=== PATIENT | female | born 1970 | race Caucasian/White ===

== ENCOUNTER 2018-08-26 05:29 | Day surgery (SDC) ==
[2018-08-21 15:21] LABS: URINE SOURCE CLEAN CATCH
[2018-08-21 15:26] LABS: BILIRUBIN URINE NEGATIVE (NEGATIVE); BLOOD URINE NEGATIVE (NEGATIVE); COLOR YELLOW; GLUCOSE URINE NEGATIVE (NEGATIVE); HEMATOCRIT 41.3 % (37.0-47.0); HEMOGLOBIN 13.6 g/dL (12.0-16.0); KETONE URINE NEGATIVE (NEGATIVE); LEUKOCYTES URINE TRACE (NEGATIVE); MCHC 32.9 g/dL (33-37); MCV 85.2 FL (81-99); MPV 10.2 FL (7.4-10.4); NITRITE URINE NEGATIVE (NEGATIVE); PH URINE 5.5; PROTEIN URINE TRACE mg/dL (NEGATIVE); RBC 4.85 XMIL (4.2-5.4); RDW 13.7 % (11.5-14.5); SP GRAVITY URINE 1.019; TURBIDITY URINE CLEAR (CLEAR); UROBILINOGEN URINE NORMAL (NORMAL); WBC 9.47 X1000 (4.8-10.8)
[2018-08-21 15:27] LABS: UR EPITHELIAL CELLS <10 /HPF (<10); URINE BACTERIA NEGATIVE /HPF; URINE RBC <10 /HPF (<10); URINE WBC <10 /HPF (<10)
[2018-08-26] MEDS ORDERED: EXPAREL 1.3% ONE (06:14)
[2018-08-26] MEDS ORDERED: NS 250 ML ONE (06:14)
[2018-08-26] MEDS ORDERED: BACITRACIN ONE (06:14)
[2018-08-26] MEDS ORDERED: XYLOCAINE-MPF 2% ONE (06:20)
[2018-08-26] MEDS ORDERED: VERSED ONE (06:20)
[2018-08-26] MEDS ORDERED: FENTANYL ONE ×2 (06:21)
[2018-08-26] MEDS ORDERED: DIPRIVAN 1% ONE (06:21)
[2018-08-26] MEDS ORDERED: LUBRIFRESH PM OPH OINTMENT ONE (06:22)
[2018-08-26] MEDS ORDERED: NORCURON ONE (06:22)
[2018-08-26] MEDS ORDERED: QUELICIN (DOSE) ONE (06:22)
[2018-08-26] MEDS ORDERED: SODIUM CHLORIDE 0.9% 0 ML ONE (06:22)
[2018-08-26] MEDS ORDERED: REGLAN ONE (06:47)
[2018-08-26] MEDS ORDERED: TRANSDERM-SCOP ONE (06:47)
[2018-08-26] MEDS ORDERED: PEPCID ONE (06:47)
[2018-08-26] MEDS ORDERED: LOVENOX ONE (06:48)
[2018-08-26] MEDS ORDERED: LR 1,000 ML ONE (06:48)
[2018-08-26] MEDS ORDERED: VALIUM ONE (06:48)
[2018-08-26] MEDS ORDERED: KEFZOL 1 GM/D5W 2 GM/100 ML IVPB ONE (06:48)
--- NOTE | 2018-08-26 07:09 | Diag Imaging Result Doc PS360 ---
EXAM: LYMPHOSCINTIGRAPHY W/IMG HISTORY: Malig. neoplasm of upper-outer quadrant of left female breast TECHNIQUE: Imaging following lymphoscintigraphy COMPARISON: None. FINDINGS: 545 uCi lymphocytic administered. The injection site is masked near the left axilla. There is a single focal area of increased activity above and outer to the injection site in the axilla. Electronically signed by Milad Kramer 08/26/2018 7:06 AM
[2018-08-26] MEDS ORDERED: DECADRON ONE (07:25)
[2018-08-26] MEDS ORDERED: ZOFRAN ONE ×2 (07:25→12:31)
[2018-08-26] MEDS ORDERED: EPHEDRINE ONE ×2 (07:38→11:09)
[2018-08-26 08:19] LABS: URINE SOURCE CATH
[2018-08-26 08:22] LABS: BILIRUBIN URINE NEGATIVE (NEGATIVE); BLOOD URINE NEGATIVE (NEGATIVE); COLOR STRAW; GLUCOSE URINE NEGATIVE (NEGATIVE); KETONE URINE NEGATIVE (NEGATIVE); LEUKOCYTES URINE NEGATIVE (NEGATIVE); NITRITE URINE NEGATIVE (NEGATIVE); PROTEIN URINE NEGATIVE (NEGATIVE); SP GRAVITY URINE 1.005; TURBIDITY URINE CLEAR (CLEAR); UROBILINOGEN URINE NORMAL (NORMAL)
[2018-08-26 08:23] LABS: UR EPITHELIAL CELLS <10 /HPF (<10); URINE BACTERIA NEGATIVE /HPF; URINE RBC <10 /HPF (<10); URINE WBC <10 /HPF (<10)
[2018-08-26] MEDS ORDERED: KEFZOL 1 GM/D5W 1 GM/50 ML IVPB ONE (10:20)
--- NOTE | 2018-08-26 12:37 | OPERATIVE NOTE ---
PROCEDURE DATE: 08/26/2018 PREOPERATIVE DIAGNOSIS: Left upper outer breast cancer. POSTOPERATIVE DIAGNOSIS: Left upper outer breast cancer. PROCEDURES PERFORMED: 1. Right mastectomy. 2. Left sentinel lymph node mapping. 3. Left mastectomy. 4. Left sentinel lymph node biopsy. 5. Removal of bilateral breast implants. 6. Left axillary dissection. SURGEON: Iron Sifuentes MD. PSYCHOLOGIST EDUCATIONAL: Dr. Cornelius. Dr. Cornelius assisted with the mastectomies and removal of the bilateral breast implants. ANESTHESIA: General endotracheal. INTRAOPERATIVE FINDINGS: Bulky lymph nodes noted with sentinel lymph nodes being sent off #1 through 4, #1 being positive. We then performed axillary dissection. COMPLICATIONS: None at the time of this dictation. ESTIMATED BLOOD LOSS: 100 mL. SPECIMENS REMOVED: 1. Bilateral breasts, marked with a single stitch medial, double stitch superior. 2. [place] lymph nodes #1 through 4 and axillary contents. DRAINS: Per Dr. Cornelius. BRIEF HISTORY: A 48-year-old female who came in with a breast mass. She had biopsy-proven breast cancer. It was felt that she needed a mastectomy with sentinel lymph node biopsy. She wanted to proceed with a right mastectomy also. The risks, benefits, and alternatives were discussed. We coordinated with Dr. Cornelius for reconstruction. She did have a history of breast implants. DESCRIPTION OF PROCEDURE: After informed consent was obtained, the patient was brought to the operative theater, transferred to the operative table, and was placed in the supine position. General endotracheal anesthesia was then performed without complication. A formal time-out was then performed, confirming patient, date, and procedure. All were in agreement. At that time, attention was given the right breast first. Through the skin markings made by Dr. Cornelius, we performed a mastectomy, carried down through the elliptical incision of the breast. We went superiorly to the 2nd rib, medially to the sternum, laterally to the axillary contents, and to the inferior margin was the inframammary fold. We did encounter the breast implant and removed it, and dissected some parts of the capsule of the area. We dissected the area off the pectoralis major. The pectoralis was very thinned out but we were able to remove it. We maintained hemostasis with electrocautery. We had flaps that were preserved both inferiorly and superiorly. We then turned our attention to the left side. In a similar way, we made incisions through the previously skin marked area, carried all the way down to the same borders as the other side. In a similar fashion, the left side pectoralis major was very thin but we were able to get it out, get at the breast off the pectoralis major. We also noted that she had an implant which we removed and dissected parts of the capsule. We went superiorly again to the 2nd rib, medially to the sternum, inferiorly to the inframammary fold, laterally to the axillary contents. We removed this in its entirety, labeled it, as we did the right side, and passed it off to pathology. We then turned our attention to the axilla, left side. We dissected it out using a combination of electrocautery and blunt dissection. Four sentinel lymph nodes, the first one came back preliminarily as being positive. We then completed an axillary node dissection, removing all the way to the axillary vein as best we could while preserving the neurovascular bundles in the area. We then turned the procedure over to Dr. Cornelius. Please see his dictation. cc: MD Mike Flores MD
[2018-08-26] MEDS ORDERED: DEMEROL PCA VIAL IV PRN (14:00)
[2018-08-26] MEDS ORDERED: NARCAN 0.4 MG in LR 1,000 ML IV PRN (14:00)
[2018-08-26] MEDS ORDERED: LR 1,000 ML IV SCH (14:00)
[2018-08-26] MEDS ORDERED: ZOFRAN IV PRN (14:00)
[2018-08-26] MEDS ORDERED: NARCAN IV PRN (14:00)
[2018-08-26] MEDS: LR 1,000 ML IV SCH ×2 (14:55→20:41)
[2018-08-26] MEDS ORDERED: PERICOLACE PO PRN (15:32)
--- NOTE | 2018-08-26 17:50 | OPERATIVE NOTE ---
PROCEDURE DATE: 08/26/2018 PROCEDURE: Bilateral breast reconstruction with bilateral aeriform air expanders and the use of bilateral AlloDerm tissue matrix. INDICATION FOR PROCEDURE: This patient is a 48-year-old, white female, with a new breast cancer on the left side that is being taken care of by Dr. Sifuentes. She has a previous history of a bilateral breast augmentation with saline implants. She desires bilateral mastectomies to treat her cancer since she is young. She was seen in the office for informed consent for this procedure on 08/21/2018. At that point, she understood that she would have a bilateral reconstruction with tissue expanders and the use of Allergan AlloDerm tissue matrix to cover the bottom portion of the manager multicultural since her muscles will be ruined by the augmentation. She understands this is the first stage of a planned 2-stage procedure. She understands and wants to put permanent implants in the future. She knows there will be a period of time where she will not have optimal breast shape when she is going through the expansion process, and we will take care of that at the second stage when we switch her to saline implants. She understands exact breast cup size changes and exact shapes are not guaranteed. She understands risks include infection, blood loss, blood clots in legs, heart problems, lung problems, allergic reactions, or blood and serum collections in the operative sites that might require drainage. She knows that we are putting air manager multicultural tissue expanders in her and they have metal in them, so she cannot have an MRI scan while she has them in place. She understands the exact size and shape cannot be guaranteed. She knows her skin incision will be standard horizontal 2 oblique skin incisions to remove her nipples and the biopsy site on the left side. She knows where her scars will be. DESCRIPTION OF PROCEDURE: The patient was brought to the operating room after she was marked in outpatient surgery in the sitting position for the bilateral mastectomies. She went to the operating room, had general anesthesia and was prepped and draped. She was re-marked, and then the folds were tacked with silk sutures to keep them stitched in position. Then I proceeded to help Dr. Sifuentes do the mastectomies because I wanted to see the quality of the muscle and where the implant was laying and the quality of the lower breast tissue muscles. We did the right total mastectomy first, and then we did the left total mastectomy. When that was completed, I left the room and allowed him to do a sentinel lymph node biopsy. The lymph nodes were positive so she had more lymph nodes dissected. When he was done I came back to the operating room, measured the pockets, dissected the pockets to free them up a bit to get ready for air form expanders that were of the model #600 which have a 14 cm base diameter. Both pockets were infiltrated with Exparel for postoperative pain control. Both pockets were irrigated with Betadine solution. Both pockets were handled in the same way. The inferior inframammary fold, capsule was dissected down to the level of the inframammary fold and then a piece of AlloDerm was used to sew into the inframammary fold in this bottom piece of capsule. Once the inferior incision was finished with the AlloDerm, the implants were opened and placed into the pocket, held down low in the pocket with silk sutures at the suture tabs at 6 o'clock and in the lateral suture tab and then the remainder of the AlloDerm was sewn over the manager multicultural to the inferior border of the pectoralis major muscle and the continuation of the old capsule laterally for a watertight seal. One drain was placed in the manager multicultural pocket and then on the right side, 2 drains were placed under the skin flaps and she was tacked closed with silk sutures. On the left side, an additional 7 mm flat [place]-Valentin drain was placed and the lymph node dissection pocket was closed down with a running 3-0 Polysorb suture. The AlloDerm and the drains were sewn in the same way on the left side in addition to fixing the manager multicultural the same way with the inferior and lateral suture tab. The skin was closed over 2 drains and then both expanders were checked with the remote control to make sure they communicated and 10 mL of gas was released in each manager multicultural. She then had the drains stitched with silk drain stitches and the incisions were closed with 3-0 Polysorb interrupted sutures in the fat, a running 3-0 Polysorb deep dermal suture, followed by a running 4-0 Biosyn subcuticular stitch. She tolerated the procedure well and was transported to the recovery room in good condition. cc: Mike Cornelius MD
[2018-08-26] MEDS: KEFZOL 1 GM/D5W 1 GM/50 ML IVPB IV SCH (20:41)
[2018-08-27] MEDS: LR 1,000 ML IV SCH (03:32)
[2018-08-27] MEDS: KEFZOL 1 GM/D5W 1 GM/50 ML IVPB IV SCH (03:32)
[2018-08-27] MEDS ORDERED: LR 1,000 ML IV SCH (07:30)
[2018-08-27] MEDS: NORCO-10 PO PRN ×3 (08:27→16:54)
[2018-08-27] MEDS ORDERED: PERIDEX MT SCH (09:00)
[2018-08-27] MEDS ORDERED: PAXIL PO SCH ×2 (09:00)
--- NOTE | 2018-08-27 11:01 | GENERAL SURGERY PROGRESS NOTE ---
DATE: 08/27/2018 SUBJECTIVE: Patient seems to be doing okay. OBJECTIVE: Vital Signs: The patient is currently afebrile. Her vital signs are stable. General Examination: No acute distress. Cardiovascular: Regular rate and rhythm. Lungs: Grossly clear. Chest Wall: Multiple drains noted with all serosanguineous output. No swelling noted to the axillae or upper extremities. ASSESSMENT/PLAN: A 48-year-old female status post left modified radical mastectomy and right simple mastectomy for breast cancer. Postoperative state. At this time, the patient seems to be doing well. The patient was seen by Dr. Cornelius. We will defer discharge to Dr. Cornelius but otherwise continue current treatment. Keep drains in place per Dr. Cornelius. We will likely need to place a port but we will discuss this with the patient further at the outpatient setting. cc: MD Mike Flores MD
[2018-08-27] MEDS ORDERED: LOVENOX SUBQ ONE (14:08)
[2018-08-27 15:41] VITALS: BP 111/63
--- NOTE | 2018-08-28 09:20 | DISCHARGE SUMMARY ---
ADMISSION DATE: 08/26/2018 DISCHARGE DATE: 08/27/2018 ADMISSION DIAGNOSIS: Left breast cancer. DISCHARGE DIAGNOSIS: Left breast cancer. HOSPITAL COURSE: The patient was admitted to the hospital via outpatient surgery where preoperative barry were made for bilateral total mastectomies to be done by Dr. Sifuentes, and then bilateral immediate reconstructions to be done by Dr. Cornelius. She went to the operating room, and had mastectomies, sentinel lymph node biopsy, and then lymph node dissection on the left side. She then had submuscular air expanders placed. They were the 600 mL size expanders, and there were placed post pectoral, and under AlloDerm inferiorly because her mastectomy required removing previously implanted saline implants. Drains were placed on both sides. She tolerated the procedure well. She was transported to the recovery room in good condition. She will be seen in my office for a dressing change in 48 hours. cc: MD Iron Varma MD
== END 2018-08-27 17:00 | disposition home or self-care (01) ==
LOC: PAT 05:29 → OPS 05:29 → 4N 05:29 → OPS 08-27 17:00
PROVIDERS: ATTEND Surgery Plastic and Reconstructive Surgery
PROC: GE.BXSN (2018-08-26 07:19)
CPT/HCPCS: 78195; 81001; 85027; 88300; 88305; 88307; 88309; 88331; 94761; 94799; A9270; A9520; C1789; C9290; J0330; J0690; J1100; J1650; J2175; J2250; J2405; J3010; J7050; J7120

== ENCOUNTER 2018-12-03 22:09 | Inpatient (IN) ==
[2018-12-03] MEDS ORDERED: TORADOL IV ONE (23:04)
[2018-12-03] MEDS ORDERED: NS 1,000 ML IV ONE (23:04)
[2018-12-04] MEDS ORDERED: ZOFRAN IV ONE (00:04)
[2018-12-04 00:10] LABS: BASO# 0.04 X1000 (0.0-0.2); BASO% 1.9 % (0.0-0.8); EOS# 0.06 X1000 (0.0-0.7); EOS% 2.9 % (0.0-10.0); HEMATOCRIT 31.6 % (37.0-47.0); HEMOGLOBIN 10.7 g/dL (12.0-16.0); IMM GRAN# 0.04 X1000 (0.0-0.04); IMM GRAN% 1.9 % (0.0-0.5); LYMPH# 0.43 X1000 (1.2-3.4); LYMPH% 20.5 % (20.5-51.1); MCH 28.8 PG (27-31); MCHC 33.9 g/dL (33-37); MCV 85.2 FL (81-99); MONO# 0.28 X1000 (0.11-0.59); MONO% 13.3 % (1.7-9.3); MPV 10.3 FL (7.4-10.4); NEUT# 1.25 X1000 (1.4-6.5); NEUT% 59.5 % (42.2-75.2); PLT 151 X1000 (130-400); RBC 3.71 XMIL (4.2-5.4); RDW 22.5 % (11.5-14.5)
[2018-12-04 00:28] LABS: AGAP 13; ALBUMIN 4.2 g/dL (3.5-5.0); BUN 6 mg/dL (8-22); CALCIUM 9.7 mg/dL (8.8-10.2); CHLORIDE 98 mmol/L (98-107); COSMO 266; CREATININE 0.6 mg/dL (0.5-0.9); ESTIMATED GFR > 60; GLUCOSE 96 mg/dL (70-104); POTASSIUM 4.1 mmol/L (3.5-5.1); SODIUM 134 mmol/L (136-145); TCO2 23 mmol/L (25-35); TOTAL BILIRUBIN 0.45 mg/dL (0.20-1.00); TOTAL PROTEIN 7.3 g/dL (6.3-8.3)
[2018-12-04 00:29] LABS: ALB/GLOB RATIO 1.4; ALKALINE PHOSPHATASE 135 U/L (32-104); GOT 15 U/L (10-30); GPT 20 U/L (10-36)
[2018-12-04 00:43] LABS: URINE SOURCE CLEAN CATCH
[2018-12-04] MEDS ORDERED: VANCOMYCIN 1 GM/NS 1 GM/250 ML IVPB IV ONE (00:50)
[2018-12-04] MEDS ORDERED: ZOSYN 3.375 GM in NS 50 ML IV ONE (00:50)
[2018-12-04 00:53] LABS: BILIRUBIN URINE NEGATIVE (NEGATIVE); BLOOD URINE NEGATIVE (NEGATIVE); COLOR YELLOW; GLUCOSE URINE NEGATIVE (NEGATIVE); KETONE URINE NEGATIVE (NEGATIVE); LEUKOCYTES URINE NEGATIVE (NEGATIVE); NITRITE URINE NEGATIVE (NEGATIVE); PH URINE 6.5; PROTEIN URINE NEGATIVE (NEGATIVE); SP GRAVITY URINE 1.009; TURBIDITY URINE CLEAR (CLEAR); UR EPITHELIAL CELLS <10 /HPF (<10); URINE BACTERIA NEGATIVE /HPF; URINE RBC <10 /HPF (<10); URINE WBC <10 /HPF (<10); UROBILINOGEN URINE NORMAL (NORMAL)
[2018-12-04] MEDS ORDERED: DUONEB (A & A) INH ONE (02:06)
[2018-12-04] MEDS ORDERED: TYLENOL PO PRN (03:00)
[2018-12-04] MEDS ORDERED: OXY IR PO PRN (03:00)
[2018-12-04] MEDS: MAXIPIME 2 GM in NS 100 ML IV SCH ×2 (03:21→14:10)
[2018-12-04] MEDS: NS 1,000 ML IV SCH ×2 (03:21→12:23)
[2018-12-04] MEDS: LOVENOX SUBQ SCH (03:24)
--- NOTE | 2018-12-04 03:26 | HISTORY AND PHYSICAL ---
REASON FOR ADMISSION: Fever, chills, cough, shortness of breath for the last 24 hours. HISTORY OF PRESENT ILLNESS: Ms Ros Rachel is a pleasant 40-year-old, woman who is currently undergoing chemotherapy for triple negative breast cancer every 3 weeks. Last treatment was about a week ago. Comes in today complaining of shortness of breath, cough productive of initially whitish-greenish sputum 2 days ago, but now brownish sputum, and a fever of 102 degrees at home. Denies any close contacts. Other than these aforementioned findings, she denies any cardiac complaints or anginal equivalent. No lower extremity redness, pain. No new onset rash. REVIEW OF SYSTEMS: Notable for some mild odynophagia, nausea and vomiting, but she states that these are lingering effects of the chemotherapy she was exposed to. Otherwise, a 12 system review was done, positive findings per HPI. ALLERGIES: Levaquin, which causes a rash. HOME MEDICATIONS: Have not been reconciled. SURGICAL HISTORY: The patient has had cholecystectomy, carpal tunnel surgery, right knee cyst removal, left lower extremity thrombectomy, bilateral mastectomy with bilateral breast implant implantation, hysterectomy, and . FAMILY HISTORY: Notable for diabetes, heart disease, stroke. No cancer. SOCIAL HISTORY: , lives with her . Drinks maybe 2 to 3 times a year. No alcohol or illicit drug use. LABORATORY WORK: White count 2,000, hemoglobin and hematocrit 10 and 31, platelets 161,000 with normal differential. Sodium 134, BUN and creatinine are normal. Alkaline phosphatase 135. Urinalysis is clean. Chest film does not show any infiltrates, does show bilateral breast implants. PHYSICAL EXAMINATION: GENERAL: Pleasant, middle-aged woman. She is alert and oriented to person, time with normal mood and affect. VITAL SIGNS: Blood pressure is 104/70, heart rate 116, respiratory rate 20, temperature 99.2 degrees, and 98% on room air. HEENT: Head is normocephalic, atraumatic. Eyes: JONN, EOMI. She is anicteric and not pale. Otherwise, patient also has chemotherapy-induced alopecia. Oropharyngeal exam only shows mild posterior pharynx erythema with no exudation. No ulcers. No sign of cyanosis. NECK: Supple. No JVD or carotid bruit. No thyromegaly. CHEST: A few scattered wheezes in her lungs in the upper part of her lungs, both sides. She has a med port in the right pectoral area, it is nontender. No erythema noted. CARDIOVASCULAR: First and 2nd heart sounds heard. No gallops, murmurs, rubs. Rhythm is regular. GASTROINTESTINAL: Abdomen is protuberant, soft. No tenderness. No mass, megaly. Bowel sounds. Rectal exam deferred at this time. EXTREMITIES: Good distal pulses, volumes regular, symmetrical. No edema, clubbing, or cyanosis. NEUROLOGIC: No gross focal deficits. SKIN: Intact. No breakdown, lesions, or erythema. MUSCULOSKELETAL: Grossly normal. ASSESSMENT: 1. Fever with mild neutropenia in a breast cancer patient undergoing chemotherapy. 2. Probable pneumonia. 3. Pancytopenia secondary to chemotherapy. 4. Hyponatremia. PLAN: Start patient on broad-spectrum antibiotics to cover for Staphylococcus epidermidis, Staphylococcus aureus, and gram-negative rods, especially Pseudomonas. I would start patient on breathing treatments as needed. Consult Dr. Rondon to see patient. Treat patient symptomatically, otherwise, during her stay. Monitor closely for gram-negative sepsis since the trend is more in that direction, but more so because these pathogens have developed a host of resistance. cc: MD Alex Ronquillo MD
--- NOTE | 2018-12-04 07:16 | Diag Imaging Result Doc PS360 ---
EXAM: CHEST-2 VIEWS 12/03/2018 HISTORY: chest pain TECHNIQUE: PA and lateral chest COMMENT: There are bilateral breast tissue expanders. There is a Port-A-Cath on the right with its tip just above the right atrium. The lungs are better expanded than on 09/27/2018. Otherwise are has been no significant change. IMPRESSION: No evidence of acute disease. Electronically signed by Celso Thomas 12/04/2018 7:14 AM
[2018-12-04] MEDS ORDERED: PHENERGAN PR PRN (07:59)
[2018-12-04] MEDS: PAXIL PO SCH (08:46)
[2018-12-04] MEDS: PHENERGAN PO PRN (08:46)
--- NOTE | 2018-12-04 10:09 | Diag Imaging Result Doc PS360 ---
EXAM: CT THORAX W/O CONTRAST INDICATION: probable PNA TECHNIQUE: This exam was performed using automated exposure control, adjustment of mA or kV according to patient size, and/or use of iterative reconstruction technique. COMPARISON: None. FINDINGS: The lungs are clear. There is no airspace consolidation appreciated. There is no pleural fluid collection and no pneumothorax. There are calcified mediastinal and left hilar lymph nodes indicating prior granulomatous disease. There is no evidence of significant mediastinal or hilar lymphadenopathy, otherwise. There has been a fairly recent bilateral mastectomy. Tissue expanders are in place. There is a small cyst density lesion at the dome of the liver. There are a few other smaller low dense hepatic foci that also likely represent tiny cysts. The upper abdomen is essentially unremarkable, otherwise. There is no evidence of acute osseous abnormality. IMPRESSION: Incidental/nonacute findings detailed above. No evidence of pneumonia or other definite acute chest pathology. Electronically signed by Dhiraj Mir 12/04/2018 10:07 AM
--- NOTE | 2018-12-04 13:04 | HEMO/ONC CONSULTATION ---
DATE: 12/04/2018 REASON FOR CONSULTATION: This is a known patient of ours for the treatment of triple negative breast cancer. HISTORY OF PRESENT ILLNESS: Ms. Rachel is on her third cycle of Adriamycin and Cytoxan for triple negative breast cancer. Her last treatment was on November 26. She called the office yesterday complaining of 1 day of increased productive cough with white, green and brown thick sputum. She came in to the office to check her labs. At that time she had no fever. The patient states after she got home that evening, she began to feel progressively worse and began running a fever of 102 degrees, She felt body aches, pain with inspiration and had wheezing. She went to the ER and was subsequently admitted. The patient states she currently feels better after treating her fever. She said last night she had significant body aches and wheezing. She has not had wheezing this morning. She had a breathing treatment prior to my arrival. She says it does hurt for her to take a deep breath in. She denies any sinus congestion. She denies abdominal pain. PAST MEDICAL HISTORY: Noncontributory. PAST SURGICAL HISTORY: Cholecystectomy, breast augmentation, carpal tunnel, phlebectomy, knee scope, hysterectomy, x2. ALLERGIES: Levaquin due to rash. HOME MEDICATIONS: Paxil, Verdig[place] 5, Zofran, Phenergan and Reglan. SOCIAL HISTORY: She is a nonsmoker, nondrinker. FAMILY HISTORY: Her maternal aunt had breast cancer. Her father had a stroke. REVIEW OF SYSTEMS: Negative, except what is mentioned in the HPI. VITAL SIGNS: Temperature 98.3 degrees, pulse rate 93, respiratory rate 18, blood pressure 115/67, O2 saturation 100% on room air. She is in 0/10 pain. PHYSICAL EXAMINATION: General: Young appearing female in no acute distress. HEENT: Sclerae is anicteric. PERRLA. Oral mucosa pink and moist. Conjunctivae pink. Skin: Warm, dry, and intact without rashes or lesions. Cardiovascular: Normal S1, S2. Heart rate and rhythm regular. Respiratory: No signs of respiratory distress. Lungs are generally clear with occasional wheeze. Gastrointestinal: Abdomen is protuberant, soft, nontender. Bowel sounds are present. Musculoskeletal: Upper and lower extremities are atraumatic in appearance without edema or deformities. Neurological: Awake, alert and oriented x3. No focal motor deficits noted. Lymph survey: No head, neck, or axillary lymphadenopathy noted. LABORATORY: WBCs 2.10, hemoglobin 10.7, hematocrit 31.6, platelet count 151. ANC 1.25. Sodium 134, potassium 4.1, creatinine 0.6, alkaline phosphatase 135. RADIOLOGY: Chest x-ray shows no evidence of acute disease. Chest CT shows no evidence of pneumonia or definite acute chest pathology. ASSESSMENT: 1. Fever. 2. Leukopenia. 3. Triple negative breast cancer undergoing chemotherapy. PLAN: Continue treatment per medical management with broad-spectrum antibiotics. The patient also received Neulasta on day 2 on chemotherapy. Her last dose was on November 27. Her last dose of Cytoxan and Adriamycin was on November 26. We will continue to follow and monitor the patient. Dictated by MONICA Walker for Alex Rondon MD Patient seen and examined. Patient admitted with fever, cough, sputum production and mild leukopenia with neutropenia. She is status post chemotherapy and Neulasta about a week ago. No severe neutropenia at the current time. Culture results are pending. Chest x-ray and CT scan without evidence of pneumonia. Continue broad-spectrum antibiotics. We will follow along with you. Alex Rondon M.D. cc: Alex Rondon MD [facility]
[2018-12-04] MEDS: NORCO-5 PO PRN ×2 (14:10→22:11)
[2018-12-04] MEDS ORDERED: VANCOMYCIN IV PER PHARMACY MISC SCH (16:00)
[2018-12-04] MEDS: VANCOMYCIN 1,000 MG in NS 250 ML IV SCH (17:47)
--- NOTE | 2018-12-04 18:49 | PROGRESS NOTE ---
DATE: 12/04/2018 SUBJECTIVE/OBJECTIVE: The patient was admitted with neutropenia, fever at home, progressive productive cough. There was suspicion was for pneumonia in the setting of cancer and active chemo. A chest x-ray did not really show anything. CT chest was obtained to see if there was occult pneumonia, but no acute findings were found. ASSESSMENT/PLAN: May be bronchitis, but there is some concern for port infection. On exam, port looks okay. We will ask for an Infectious Disease opinion. Continue to monitor closely.
--- NOTE | 2018-12-04 21:06 | INFECTIOUS DISEASE CONSULT REP ---
DATE: 12/04/2018 CONCLUSION: I think the patient may have bronchitis. Also, I think it is possible that she could have a malfunctioning Port-A-Cath that is infected. RECOMMENDATIONS: I agree with treating the patient with cefepime. I have also added vancomycin. DISCUSSION: Approximately 5 to 7 days ago, the patient started having chest congestion and a cough production of sputum. The patient also states that she felt tight in her chest. She was short of breath and wheezed. The patient's CBC shows a white count of 2100, hemoglobin 10.7, and platelet count 151,000. Creatinine is 0.6, GFR is greater than 60. Liver function studies are normal, except for an alkaline phosphatase of 135. Urinalysis shows no white cells or bacteria. CT scan of the chest shows no infiltrate. The patient has had blood cultures drawn and thus far they are negative. PAST MEDICAL HISTORY/REVIEW OF SYSTEMS: Eyes/ears: She does wear glasses. Her hearing is good. Neck: No stiffness. Respiratory: See present illness. Cardiac: No chest pain or palpitations. Gastrointestinal: No vomiting or diarrhea. The patient has had some nausea in the past week, also. Genitourinary: No dysuria or flank pain. Bones/joints/muscles: No swollen joints or bone pain, but she does say she has some mild myalgias. Neurologic: No seizures. No loss of motor or sensory function. OBSTETRICAL/GYNECOLOGICAL HISTORY: The patient is a 2, para 2, AB 0. She delivered both of her children by section. She has had a hysterectomy and bilateral salpingo- oophorectomy. PREVIOUS HOSPITALIZATIONS/OPERATIONS: Patient has had 2 sections, a hysterectomy, and bilateral salpingo-oophorectomy. She has had a cholecystectomy, a surgery on her right knee, right carpal tunnel surgery, bilateral mastectomy, and surgery on her left leg for varicose veins. MEDICAL DISEASES: Positive for breast cancer with zana metastases. The patient has done chemotherapy. INFECTIOUS DISEASE HISTORY: Positive for UTI. FAMILY HISTORY: Positive for stroke, cancer, myocardial infarction, and diabetes. SOCIAL HISTORY[place] . She is a nurse, works at outpatient surgery. She has a dog and a cat for pets. ALLERGIES: She is allergic to Levaquin. MEDICATIONS: At home, she takes Paxil. PHYSICAL EXAMINATION: Vital Signs: Temperature is 98.1 degrees, pulse 92, respirations 16, blood pressure 96/53. The patient is 5 feet tall, weighs 147 pounds. General: This is a somewhat obese, middle-aged female. She is in no acute distress. Head/eyes/ears/nose/throat: She can hear my spoken words and see near objects. I did not see any white coating on her tongue. Her sinuses are not tender. Thorax: The patient's right-sided Port-A-Cath is slightly tender and swollen. Lungs: Clear to auscultation. Cardiovascular: Regular heart rate. Abdomen: Soft and nontender. Neurologic: The patient is alert. She can move her extremities. There is no tremor. integument: No rash noted. Thank you for the consult. cc: Kenny Neal MD
[2018-12-05] MEDS: LOVENOX SUBQ SCH (03:02)
[2018-12-05] MEDS: MAXIPIME 2 GM in NS 100 ML IV SCH ×2 (03:02→15:38)
[2018-12-05] MEDS: VANCOMYCIN 1,000 MG in NS 250 ML IV SCH ×2 (04:26→20:03)
[2018-12-05 07:55] LABS: BASO# 0.06 X1000 (0.0-0.2); BASO% 2.4 % (0.0-0.8); EOS# 0.08 X1000 (0.0-0.7); EOS% 3.2 % (0.0-10.0); HEMOGLOBIN 9.8 g/dL (12.0-16.0); IMM GRAN# 0.05 X1000 (0.0-0.04); LYMPH# 0.61 X1000 (1.2-3.4); LYMPH% 24.1 % (20.5-51.1); MCH 28.6 PG (27-31); MCHC 32.7 g/dL (33-37); MCV 87.5 FL (81-99); MONO# 0.49 X1000 (0.11-0.59); MONO% 19.4 % (1.7-9.3); MPV 10.2 FL (7.4-10.4); NEUT# 1.24 X1000 (1.4-6.5); NEUT% 48.9 % (42.2-75.2); PLT 141 X1000 (130-400); RBC 3.43 XMIL (4.2-5.4); RDW 22.6 % (11.5-14.5); WBC 2.53 X1000 (4.8-10.8)
[2018-12-05 08:01] LABS: AGAP 13; ALB/GLOB RATIO 1.4; ALBUMIN 3.8 g/dL (3.5-5.0); ALKALINE PHOSPHATASE 120 U/L (32-104); BUN 4 mg/dL (8-22); CALCIUM 9.2 mg/dL (8.8-10.2); CHLORIDE 111 mmol/L (98-107); COSMO 289; CREATININE 0.6 mg/dL (0.5-0.9); ESTIMATED GFR > 60; GLUCOSE 92 mg/dL (70-104); GOT 15 U/L (10-30); GPT 21 U/L (10-36); POTASSIUM 4.1 mmol/L (3.5-5.1); SODIUM 147 mmol/L (136-145); TCO2 23 mmol/L (25-35); TOTAL BILIRUBIN 0.25 mg/dL (0.20-1.00); TOTAL PROTEIN 6.5 g/dL (6.3-8.3)
[2018-12-05] MEDS: PAXIL PO SCH (09:05)
--- NOTE | 2018-12-05 09:10 | HEMO/ONC PROGRESS NOTE ---
DATE: 12/05/2018 HISTORY OF PRESENT ILLNESS/SUBJECTIVE: The patient is resting comfortably in bed this morning. She awakes easily when I enter the room. The patient states she is comfortable. She feels a lot better than she did yesterday. Her cough production is much less. She has no pain. No body aches. She feels as though her breathing is much easier. OBJECTIVE: Vital Signs: Temperature 97.7 degrees, pulse rate 76, blood pressure 94/63, O2 saturation 97% on room air. She is in 0/10 pain. Physical Examination: General: A young-appearing female in no acute distress. HEENT: Sclerae are anicteric. PERRLA. Oral mucosa pink and moist. Conjunctivae pink. Skin: Warm, dry, and intact without ecchymosis or petechiae. Cardiovascular: Normal S1, S2. Heart rate and rhythm regular. Respiratory: No signs of respiratory distress. Lung sounds are clear to auscultation bilaterally. Gastrointestinal: Abdomen is soft, nontender, nondistended. Musculoskeletal: Upper and lower extremities are atraumatic in appearance without edema. Neurological: Awake, alert, and oriented x3. No focal motor deficits noted. Laboratory: WBCs 2.53, hemoglobin 9.8, hematocrit 30, platelet count a 141,000. ANC 1.24. Sodium 147, potassium 4.1. Alkaline phosphatase 120. ASSESSMENT: 1. Fever and Bronchitis. 2. Mild leukopenia with neutropenia. 3. Triple negative breast cancer, currently undergoing chemotherapy. PLAN: Continue the patient on broad-spectrum antibiotics. Her blood cultures are still pending. The patient appears to be improving. We will continue to follow along. Dictated by MONICA Walker for Alex Rondon MD [facility]
[2018-12-05] MEDS: NORCO-5 PO PRN (13:07)
--- NOTE | 2018-12-05 16:47 | PROGRESS NOTE ---
DATE: 12/05/2018 INTERVAL HISTORY: Patient with continued nonproductive cough, but slightly improved. Malaise with fatigue and dyspnea. All much improved. Afebrile overnight. No new complaints. No acute events. REVIEW OF SYSTEMS: Twelve point review of systems negative except as per interval history. LABS: WBC 2.5, hemoglobin 9.8, hematocrit 30.0, platelets 141,000. Sodium 147, potassium 4.1, BUN 4, creatinine 0.6. Urinalysis unremarkable. Blood cultures remain negative. VITALS: T-max 98.8 degrees, pulse 92, blood pressure 107/65, respirations 16, O2 saturation 98% on room air. PHYSICAL EXAMINATION: General: No acute distress. Vitals: As above. HEENT: Normocephalic, atraumatic. Moist mucous membranes. No cervical adenopathy. Cardiovascular: Regular rate and rhythm. No murmurs, rubs, or gallops. Abdomen: Soft, nontender, nondistended. Bowel sounds positive. Extremities: Peripheral pulses intact. No clubbing, cyanosis, or edema. Neurologic: Cranial nerves grossly intact. No focal deficits. Psychiatric: Normal mood and affect. Awake, alert, oriented x3. Skin: No new rashes or lesions identified. ASSESSMENT AND PLAN: 1. Febrile illness, mild neutropenia. The patient presented with cough, some mild dyspnea, malaise, fatigue. Initial concern was for pneumonia but imaging does not support this. May be viral upper respiratory infection but given active chemotherapy neutropenia we are treating for possible port infection until proven otherwise. Patient on antibiotics with vancomycin and cefepime for now. Infectious disease following. If blood cultures remain negative making port infection unlikely, then may be able to deescalate antibiotics and discharge in the next 24 to 48 hours. 2. Breast cancer. Patient on chemotherapy. Remains mildly neutropenic but not really worsening. Continue to monitor. 3. Sodium. Patient initially with low sodium now actually slightly high today after some fluids. No need for acute intervention but will follow labs. 4. Anemia likely chemo related. Blood counts with slight down trend but no signs or symptoms of active bleeding.
--- NOTE | 2018-12-05 19:53 | INFECTIOUS DISEASE PROGRESS NO ---
DATE: 12/05/2018 HISTORY OF PRESENT ILLNESS: The patient has bronchitis and possible infection of her Port-A-Cath. MEDICATIONS: The patient is on day 1 of treatment with cefepime and vancomycin. PHYSICAL EXAMINATION: Vital Signs: Temperature is 97.3 degrees, pulse 92, respirations 14, blood pressure is 107/65. General: This is a healthy-appearing, middle-aged female. She is in no acute distress. Head, eyes, ears, nose, and throat: The patient has lost all of her hair. She can hear my spoken words and see near objects. She does not have any white patches in her mouth. Neck: No pain with movement.. Thorax: Patient's Port-A-Cath site is slightly tender. It is not draining anything. It is slightly swollen in the area also. Lungs: Clear to auscultation. Cardiovascular: Heart rate is regular. Abdomen: Soft and nontender. Neurologic: The patient is alert. She can move her extremities. She ambulates without difficulty. There is no tremor. LAB AND X-RAY: There are no new radiographic studies done today. The patient's CBC shows a white count of 2530 with an absolute neutrophil count of 1240. Hemoglobin is 9.8, and platelet count is 141,000. Creatinine is 0.6. GFR is greater than 60. Alkaline phosphatase is 120. Blood cultures are pending. ASSESSMENT AND PLAN: The patient has bronchitis and may have an infected Port-A-Cath. My plan is to continue with her current antibiotics and see what the reading on the blood cultures is tomorrow. For now, I am going to continue cefepime and vancomycin. COMORBIDITIES: The patient has breast cancer with zana metastases. She has had chemotherapy. cc: Kenny Neal MD
[2018-12-05] MEDS: PHENERGAN PO PRN (22:39)
[2018-12-06] MEDS: MAXIPIME 2 GM in NS 100 ML IV SCH (04:24)
[2018-12-06] MEDS: LOVENOX SUBQ SCH ×2 (04:25→05:45)
[2018-12-06] MEDS: VANCOMYCIN 1,000 MG in NS 250 ML IV SCH (05:24)
[2018-12-06 06:55] LABS: BASO# 0.12 X1000 (0.0-0.2); EOS# 0.15 X1000 (0.0-0.7); EOS% 2.5 % (0.0-10.0); HEMATOCRIT 30.4 % (37.0-47.0); HEMOGLOBIN 10.2 g/dL (12.0-16.0); IMM GRAN# 0.63 X1000 (0.0-0.04); IMM GRAN% 10.4 % (0.0-0.5); LYMPH# 0.82 X1000 (1.2-3.4); LYMPH% 13.5 % (20.5-51.1); MCH 29.4 PG (27-31); MCHC 33.6 g/dL (33-37); MCV 87.6 FL (81-99); MONO# 0.91 X1000 (0.11-0.59); NEUT# 3.45 X1000 (1.4-6.5); NEUT% 56.6 % (42.2-75.2); PLT 162 X1000 (130-400); RBC 3.47 XMIL (4.2-5.4); WBC 6.08 X1000 (4.8-10.8)
[2018-12-06 07:25] LABS: AGAP 8; BUN 8 mg/dL (8-22); CALCIUM 9.4 mg/dL (8.8-10.2); CHLORIDE 106 mmol/L (98-107); COSMO 276; CREATININE 0.6 mg/dL (0.5-0.9); ESTIMATED GFR > 60; GLUCOSE 106 mg/dL (70-104); POTASSIUM 3.7 mmol/L (3.5-5.1); SODIUM 139 mmol/L (136-145); TCO2 25 mmol/L (25-35)
[2018-12-06 08:06] LABS: ANISOCYTOSIS 1+; BANDS 2 % (0-1); BASO 1 % (0-1); EOS 4 % (1-10); LYMPHS 14 % (21-51); MONO 5 % (1-9); NRBC 3 % (0-0); SEGS 66 % (42-75)
[2018-12-06] MEDS: PAXIL PO SCH (08:54)
[2018-12-06] MEDS: NORCO-5 PO PRN (08:55)
--- NOTE | 2018-12-06 09:47 | HEMO/ONC PROGRESS NOTE ---
DATE: 12/06/2018 SUBJECTIVE: The patient was asleep this morning; she awoke easily to my voice. She states she feels a lot better today. She has not gotten good sleep while in the hospital, and is looking forward to going home soon. She states her cough has much improved. She denies body aches, fever, abdominal pain. OBJECTIVE: Vital Signs: Temperature 98.1 degrees, pulse rate 83, respiratory rate 20, blood pressure 102/62, O2 saturation 99% on room air. She is in 0/10 pain. Physical Exam: General: Young-appearing female in no acute distress. HEENT: Sclera is anicteric. PERRLA. Oral mucosa is pink and moist. Conjunctiva pink. Skin: Warm, dry, and intact without ecchymosis or petechia. Alopecia. Cardiovascular: Normal S1, S2. Heart rate and rhythm is regular. Respiratory: No signs of respiratory distress. Lung sounds are clear to auscultation bilaterally. Gastrointestinal: Abdomen is soft, nontender, nondistended. Musculoskeletal: Upper and lower extremities are atraumatic in appearance without edema. Neurological: Awake, alert and oriented x3. No focal motor deficits noted. LABORATORY: WBCs 6.08, hemoglobin 10.2, hematocrit 30.4, platelet count 162,000. ANC 3.45. ASSESSMENT: 1. Fever and bronchitis. 2. Mild leukopenia with neutropenia, resolved. 3. Triple negative breast cancer, currently undergoing chemotherapy. PLAN: Continue patient on broad-spectrum antibiotic. Continue to monitor her blood cultures. She continues to improve. We will follow along with her and she will follow up as an outpatient. Dictated by MONICA Walker for Alex Barnes MD Neutropenia resolved. Afebrile. Continue current management. Alex barnes MD. cc: Alex Barnes MD [facility]
--- NOTE | 2018-12-06 11:43 | INFECTIOUS DISEASE PROGRESS NO ---
DATE: 12/06/2018 PRESENT ILLNESS: The patient has bronchitis. I thought early on that the patient could have a Port-A-Cath site infection, however, I doubt that now because her blood cultures have remained negative and the Port-A-Cath site is not swollen or tender and there is no drainage coming from it. MEDICATIONS: This is day 2 of treatment with cefepime and vancomycin. PHYSICAL EXAMINATION: Vital signs: Temperature is 98.1, pulse 83, respirations 20, blood pressure 102/62. General: This is a healthy-appearing middle-aged female. She is in no acute distress. Head, Eyes, Ears, Nose, and Throat: The patient has lost all of her hair. She does not have any drainage from the nose or ears. She does not have any white patches in her mouth. Neck: No pain with movement. Thorax: The patient's Port-A-Cath site is not tender today and there is no swelling or drainage coming from it. Lungs: Clear to auscultation. Cardiovascular: Heart rate is regular. Abdomen: Soft and nontender. Neurologic: The patient is alert. She ambulates without difficulty. She talks in a coherent fashion. She does not have a tremor. LAB AND X-RAY: The patient's blood cultures remain negative. Her CBC shows a white count of 6080, hemoglobin 10.2, and platelet count 162,000. Creatinine is 0.6, GFR is greater than 60. Blood cultures are negative thus far. ASSESSMENT AND PLAN: The patient has bronchitis for which I have electronically sent a prescription for Ceftin 500 mg p.o. every 12 hours for 5 days. Also, the patient asked if I would put in a prescription for fluconazole, which occurs when she takes antibiotics or when she takes chemotherapy, so I have also put in electronically a prescription for fluconazole 150 mg daily for vaginal itching and/or drainage. I called the Microbiology lab and asked them to notify me if the patient's blood cultures should turn positive, which I doubt they will. COMORBIDITIES: The patient has breast cancer with zana metastases. She is taking chemotherapy. cc: Kenny Neal MD
[2018-12-06 11:47] VITALS: BP 110/70
--- NOTE | 2018-12-10 15:55 | DISCHARGE SUMMARY ---
ADMISSION DATE: 12/03/2018 DISCHARGE DATE: 12/06/2018 CONSULTS: Hematology Oncology, Dr. Rondon; Infectious Disease, Dr. Neal. PERTINENT STUDIES: Patient's initial white count 2.1, discharge white count 6.0. Urinalysis within normal limits. Chest x-ray with no acute process. Chest CT with no acute process. Blood cultures no growth. DISCHARGE DIAGNOSES: 1. Febrile neutropenia. 2. Upper respiratory infection. 3. Breast cancer, currently on chemotherapy. 4. Hyponatremia. 5. Hypernatremia. 6. Anemia. HOSPITAL COURSE: The patient is a 48-year-old female, currently on chemotherapy for breast cancer. She presented with several days of slowly worsening cough, dyspnea, and congestion, and fever. She reported fever to 102 at home. On initial evaluation in the OR, she was found to be leukopenic and neutropenic with a white count of 2.1 and absolute neutrophil count of 1250, indicating mild neutropenia. Initial concern was for pneumonia and she was placed on empiric antibiotics with vancomycin and cefepime. However, chest x-ray did not really show any pneumonia, so CT chest was obtained which again showed no definite infection. Other source of infection was searched for. The urinalysis was within normal limits. Given this, there was some concern for port infection. Blood cultures remain negative and patient's symptoms resolved so after discussion with Infectious Disease and Hematology/Oncology, it was felt this was all likely a viral upper respiratory infection versus bronchitis. She was discharged home on a short course of Ceftin to make sure any potential bacterial bronchitis was resolved. Patient's white count improved. On discharge, her WBC was 6.0 with a normal absolute neutrophil count DISCHARGE VITAL SIGNS: Temperature 97.5 degrees, pulse 87, respirations 18, blood pressure 110/79, O2 saturation 95% in the back. DISCHARGE DIET: Regular. DISCHARGE MEDICATIONS: [place] as previously prescribed, Zofran 8 mg p.o. as needed, Paxil 10 mg p.o. daily, Phenergan 12.5 mg suppository as needed, Ceftin 500 mg p.o. q.12 hours, fluconazole 150 mg daily as directed. FOLLOWUP AND PLAN: Patient discharging home on a short course of Ceftin. Patient to follow up with his PCP and Hematology. Patient to return to care if fevers reoccur. Greater than 30 minutes spent arranging discharge and counseling patient. ROMY
== END 2018-12-06 11:59 | disposition home or self-care (01) | DRG 202 ==
LOC: ED 22:09 → SUATTDRO 22:10 → 3N 22:10
PROVIDERS: ATTEND Internal Medicine